=== PATIENT | female | born 1965 | race African-American/Black ===

== ENCOUNTER → 2016-11-30 | Outpatient (CLI) | payer OTHER ==
--- NOTE | ~2016-11-30 | CR58 ---
[facility] A Service of [facility] RADIOLOGY TEXT RESULTS PATIENT: RAFIQ HOBSON LOCATION: [facility] : 61 UNIT #: [id number] AGE: [address]: Gilmar Naik MD SEX: F ORDER DR: [id number] [facility]. [place], [place] [address] [id number] O MR#: [id number] Acc #: [id number] NAME: RAFIQ HOBSON : 1965 SEX: F STUDY DATE/TIME: 11/30/2016 10:46 UNIT: [facility] ROOM: STUDY DESCRIPTION: CR Cervical Spine 2 or 3 Views Attending Physician: Gilmar Naik M.D. Ordering Physician: Gilmar Naik M.D. MEDICAL IMAGING REPORT This report is preliminary unless electronic signature is present EXAM Cervical spine series dated 11/30/2016. COMPARISON None. HISTORY Lateral neck and upper arm pain for 4 days. FINDINGS Four views of the cervical spine were obtained. There is loss of normal cervical curvature. Endplate osteophytes are noted from C3 to C6. There is probably disc disease from C3-4 to C6-7. There is bony irregularity noted along the posterior and inferior aspect of the C4 vertebral body which is of uncertain clinical significance. Without history of trauma, it is less likely to be an acute fracture. It could be a spur or a chronic fracture. Bony mass is next in the differential consideration. C1-2 and C7-T1 junctions are intact. Pre and paravertebral soft tissues are unremarkable. Attempts are made to contact Dr. Gilmar Naik at 08:00 p.m. on 12/01/16. Findings were discussed with Dr. Naik at 09:50 a.m. on 12/01/16. Dictated by... Gerber Garcia M.D. THIS IS AN ELECTRONICALLY VERIFIED REPORT Gerber Garcia M.D. at 12/05/2016 2:44 PM CPR/bd TD: 12/01/2016 13:21 JOB #: [id number] [facility] A Service of [facility] RADIOLOGY TEXT RESULTS PATIENT: RAFIQ HOBSON LOCATION: [facility] #: [id number] : 61 UNIT #: [id number] AGE: [address]: Gilmar Naik MD SEX: F ORDER DR: MEDICAL IMAGING REPORT Page 1 of 1 COPY
== END | disposition home or self-care (01) ==
LOC: CRAD 10:20
DX: M54.2 Cervicalgia (principal)
CPT/HCPCS: 72040